=== PATIENT | female | born 1985 | race Caucasian/White ===

== ENCOUNTER 2019-07-24 08:51 | Day surgery (SDC) | payer OTHER, SELFPAY ==
[2019-07-24] VITALS (15 sets, daily range): BP systolic 90–128; BP diastolic 47–75; PULSE 69–91; RESP 11–22; TEMP 36.1–36.9; O2SAT 96–100
--- NOTE | ~2019-07-24 | US_ITS ---
EXAMINATION: US OB <=14 wk fetus w TV DATE: 07/24/2019 10:15 INDICATION: Pelvic pain. Spotting. First trimester of . Beta-hCG is 12,520 mIU/mL. TECHNIQUE: Real-time transabdominal and transvaginal pelvic ultrasound was performed. COMPARISON: None. FINDINGS: TRANSABDOMINAL ULTRASOUND: The uterus measures 8.9 x 5.7 x 6.2 cm. TRANSVAGINAL ULTRASOUND: There is no visible intrauterine gestational sac. The endometrial complex me asures 2.1 cm in thickness. The right ovary measures 2.5 x 2.2 x 2.6 cm. The left ovary measures 2.7 x 2.0 x 1.8 cm. In the left adnexa, there is a 4.0 x 2.7 x 4.0 cm mass of heterogeneous echogenicity . There is trace free fluid in the pelvis. IMPRESSION: 1. 4.0 cm left adnexal mass. Given the lack of a visible intrauterine gestational sac despite a beta -hCG of 12,529 mIU/mL, this finding is suspicious for an ectopic . I called this result to Sharmin Scott on 07/24/19 at 10:34 AM. Reviewed, dictated and finalized at location A. IMPRESSION: 1. 4.0 cm left adnexal mass. Given the lack of a visible intrauterine gestatio nal sac despite a beta-hCG of 12,529 mIU/mL, this finding is suspicious for an ectopic . I called this result to Dr. Scott on 07/24/19 at 10:34 AM .
--- NOTE | 2019-07-24 09:05 | ED.PREGNANCY ---
HPI - General Chief complaint: CHARGE ENTRY Stated complaint: 7 weeks preg, cramping Time Seen by Provider: 07/24/19 09:01 History of Present Illness HPI Narrative: Pelvic cramping since this morning. moderate in severity. She is 7 weeks . No prior US. She has had spotting for a few weeks. No worse today. No fever, chills, nausea, vomiting, dysuria. Related Data Home Medications Medication Instructions Recorded Confirmed 21-iron fu-folic acid 1 tablet PO DAILY 05/06/19 07/24/19 [ Complete] Allergies Allergy/AdvReac Type Severity Reaction Status Date / Time [facility] Allergy CHILD- Verified 07/24/19 12:35 UNKNOWN REACTION Review of Systems Review of Systems: All systems reviewed & are unremarkable except as noted in HPI and below Constitutional: Constitutional: Denies fever(s) Cardiovascular: Cardiovascular: Denies chest pain Respiratory: Respiratory: Denies dyspnea Gastrointestinal: Gastrointestinal: Reports abdominal pain Genitourinary: Genitourinary: Denies dysuria [facility] Social History Social History (Updated 07/24/19 @ 16:20 by Nasir Scott MD) Smoking status: Never smoker Exam Const: General: healthy appearing, no acute distress and alert Orientation/consciousness: patient oriented x3 HENMT: Head: normal to inspection Chest: Chest palpation & inspection: no tenderness Resp: Effort & Inspection: normal respiratory effort Auscultation: clear to auscultation bilaterally, no rales, no rhonchi and no wheezes Cardio: Jugular venous distension: no JVD Rate: regular rate Rhythm: regular rhythm Heart sounds: no murmurs GI: Inspection: non-distended GI Palp: Yes Soft to palpation and No Tenderness to palpation present (GI) Other: Non-tender Skin: General skin exam: normal color Neuro: General: patient oriented x3 and moves all extremities Speech: normal speech Extrem: General: no edema Psych: Appearance: well kempt Affect: normal affect Course Vital Signs Vital signs: Vital Signs Temperature 36.6 C 07/24/19 08:58 Pulse Rate 70 07/24/19 08:58 Respiratory Rate 22 H 07/24/19 08:58 Blood Pressure 97/55 L 07/24/19 08:58 Pulse Oximetry 98 07/24/19 08:58 Temperature 36.9 C 07/24/19 14:55 Pulse Rate 75 07/24/19 15:50 Respiratory Rate 14 07/24/19 15:50 Blood Pressure 91/57 L 07/24/19 15:50 Pulse Oximetry 96 07/24/19 14:55 MDM - OB/Uterine Contractions MDM Narrative Medical decision making narrative: Ectopic, miscarriage, normal preganancy. US suspicious for ectopic. [facility] 12,00. Case discussed with Emily Hernandez. He will take her to the OR. Medical Records Attestation: I reviewed the patient's medical records. Lab Data Attestation: I reviewed the patient's lab results. Result diagrams: 07/24/19 09:22 07/24/19 10:46 Labs: Lab Results 07/24/19 07/24/19 07/24/19 Range/Units 09:22 09:22 09:22 WBC 10.5 H (4.5-10.0) K/mm3 RBC 4.62 (4.2-5.4) M/mm3 Hgb 14.3 (12.0-15.0) g/dL Hct 40.9 (37.0-47.0) % MCV 88.5 (80-100) fl MCH 31.0 (26-34) pg MCHC 35.0 (32-36) g/dl RDW 12.0 (11.5-14.5) % Plt Count 300 (150-375) k/mm3 MPV 8.8 (7.4-10.4) fl Immature Gran % (Auto) 0.7 H (0-0.5) % Neut % (Auto) 75.1 H (45.5-73.1) % Lymph % (Auto) 16.4 L (18.3-44.2) % [place] % (Auto) 5.1 (2.6-8.5) % Eos % (Auto) 2.0 (0-4.4) % Baso % (Auto) 0.7 (0.2-1.2) % Lymph # (Auto) 1.72 (0.9-3.2) K/mm3 [place] # (Auto) 0.5 (0.1-0.6) K/mm3 Eos # (Auto) 0.2 (0-0.3) K/mm3 Baso # (Auto) 0.1 (0.0-0.1) K/mm3 Abs Immat Gran (auto) 0.07 H (0.00-0.031) K/mm3 Absolute Neuts (auto) 7.9 H (1.3-6.7) K/mm3 Absolute Nucleated RBC 0.0 (0.0-0.012) K/mm3 Nucleated RBC % 0.0 (0.0-0.2) % PT 12.1 (11.1-14.7) Seconds INR 0.9 APTT 23.4 (22.3-36.8) SECONDS Sodium (137-145) mmol/L
[2019-07-24] MEDS: SODIUM CHLORIDE 0.9% IV 1,000 ML 999 ML IV CONT (09:26)
[2019-07-24 09:29] LABS: Basophils Absolute Auto 0.1 K/mm3 (0.0-0.1); Basophils Percent Auto 0.7 % (0.2-1.2); Eosinophils Absolute Auto 0.2 K/mm3 (0-0.3); Hematocrit 40.9 % (37.0-47.0); Hemoglobin 14.3 g/dL (12.0-15.0); Immature Granulocyte Absolute 0.07 K/mm3 (0.00-0.031); Immature Granulocyte Percent A 0.7 % (0-0.5); Lymphocytes Absolute Auto 1.72 K/mm3 (0.9-3.2); Lymphocytes Percent Auto 16.4 % (18.3-44.2); Mean Corpuscular Volume 88.5 fl (80-100); Mean Platelet Volume 8.8 fl (7.4-10.4); Monocytes Absolute Auto 0.5 K/mm3 (0.1-0.6); Monocytes Percent Auto 5.1 % (2.6-8.5); Neutrophils Absolute Auto 7.9 K/mm3 (1.3-6.7); Neutrophils Percent Auto 75.1 % (45.5-73.1); Platelet Count Result 300 k/mm3 (150-375); Red Blood Count 4.62 M/mm3 (4.2-5.4); White Blood Count 10.5 K/mm3 (4.5-10.0)
[2019-07-24 09:39] LABS: INR 0.9; Prothrombin Time 12.1 Seconds (11.1-14.7)
[2019-07-24 09:40] LABS: Partial Thromboplastin Time 23.4 SECONDS (22.3-36.8)
[2019-07-24 09:56] LABS: Add Urine Microscopic? YES; Amorphous Sediment Urine Moderate; Appearance Urine Cloudy (Clear); Bacteria Urine Trace /hpf; Bilirubin Urine Negative (Negative); Blood Urine Negative (Negative); Color Urine Yellow (Yellow); Glucose Urine UA Negative (Negative); Ketones Urine Negative (Negative); Leukocyte Esterase Ur Trace LEU/UL (Negative); Mucus Urine Few /lpf; Nitrate Urine Negative (Negative); Protein Urine 1+ mg/dL (Negative); Specific Grav Ur 1.019 (1.001-1.035); Squamous Epithelial Cell Urine Few /hpf (Few); Urobilinogen Urine Negative mg/dL (<2.0); WBC Urine 0-3 /hpf
[2019-07-24 11:11] LABS: Alanine Aminotransferase 22 U/L (4-35); Albumin Level 3.7 g/dL (3.5-5.1); Alkaline Phosphatase 75 U/L (38-126); Aspartate Amino Transferase 20 U/L (14-36); Bilirubin,Total 0.3 mg/dL (0.2-1.3); Blood Urea Nitrogen 17 mg/dL (7-17); Calcium 8.1 mg/dL (8.4-10.2); Carbon Dioxide 23 mmol/L (22-30); Chloride 107 mmol/L (98-107); Estimated CRCL calculation 103 ml/min; Estimated Glomerular Filt Rate > 60; Glucose 101 mg/dL (65-105); Potassium 4.6 mmol/L (3.4-5.0); Sodium 135 mmol/L (137-145)
--- NOTE | 2019-07-24 11:35 | PC.NURSE ---
Dr. Mosley here to examine patient
--- NOTE | 2019-07-24 11:41 | PM.IMHP ---
H&P: HPI History of Present Illness Chief complaint: 7 weeks preg, cramping Narrative: Anabel Anaya is a 34 year old female Presents to the emergency department with a right-sided ectopic . She had increasing hCGs and has been 7 weeks since her last menstrual period ultrasound shows a mass consistent with ectopic and no intrauterine . Risks and benefits were reviewed Review of Systems Review of Systems: All systems reviewed & are unremarkable except as noted in HPI and below Meds Home Medications and Allergies Home Medications Medication Instructions Recorded Confirmed Type multivitamin 1 tablet PO DAILY 05/06/19 05/06/19 History 21-iron fu-folic acid 1 tablet PO DAILY 05/06/19 05/06/19 History [ Complete] Allergies Allergy/AdvReac Type Severity Reaction Status Date / Time cefaclor [From [facility]] Allergy CHILD- Verified 05/06/19 14:48 UNKNOWN REACTION Vital Signs Vital Signs - 24 hr 07/24/19 08:58 07/24/19 10:06 07/24/19 10:07 Temperature 97.9 F Pulse Rate 70 74 80 Respiratory Rate 22 H Blood Pressure 97/55 L 107/65 103/66 Pulse Oximetry 98 07/24/19 10:09 07/24/19 10:36 Temperature Pulse Rate 91 72 Respiratory Rate 16 Blood Pressure 112/62 112/62 Pulse Oximetry 99 Exam Const: General: no acute distress Eyes: General: appearance normal, both eyes and all related structures Neck: Neck: supple and no JVD Thyroid: thyroid normal Resp: Effort & Inspection: normal respiratory effort Auscultation: clear to auscultation bilaterally Cardio: Rate: regular rate Rhythm: regular rhythm GI: Inspection: non-distended GI Palp: Yes Soft to palpation, No Tenderness to palpation present (GI) and No Guarding due to palpation present (GI) Auscultation: normal bowel sounds : General: Yes other (Generalized pelvic pain.) External Female Exam: normal appearance of the urethra Speculum Exam - Vagina: normal appearance of the vagina and vaginal bleeding Bimanual exam- vagina & uterus: Uterine tenderness Bimanual Exam- Adnexa, other: cul-de-sac fullness Skin: General skin exam: no rashes or lesions noted Extrem: General: normal to inspection and no edema Psych: Mental Status: mental status grossly normal Affect: normal affect H&P: Results Labs Labs: Short CBC 07/24/19 Range/Units 09:22 WBC 10.5 H (4.5-10.0) K/mm3 Hgb 14.3 (12.0-15.0) g/dL Hct 40.9 (37.0-47.0) % Plt Count 300 (150-375) k/mm3 BMP 07/24/19 10:46 Sodium 135 L Potassium 4.6 Chloride 107 Carbon Dioxide 23 BUN 17 Creatinine 0.80 Glucose 101 Calcium 8.1 L Liver Function 07/24/19 Range/Units 10:46 Total Bilirubin 0.3 (0.2-1.3) mg/dL AST 20 (14-36) U/L ALT 22 (4-35) U/L Alkaline Phosphatase 75 (38-126) U/L Albumin 3.7 (3.5-5.1) g/dL Urine 07/24/19 Range/Units 09:36 Urine Color Yellow (Yellow) Urine Appearance Cloudy H (Clear) Urine pH 8.0 (5.0-9.0) Ur Specific [place] 1.019 (1.001-1.035) Urine Protein 1+ H (Negative) mg/dL Urine Glucose (UA) Negative (Negative) mg/dL Assessment and Plan Additional Plan Impression: Ectopic Plan: Laparoscopic salpingectomy versus salpingectomy versus salpingo-oophorectomy.
[2019-07-24] MEDS: LACTATED RINGERS 1,000 ML 30 ML IV CONT (12:25)
--- NOTE | 2019-07-24 12:42 | WPDANESEPPF ---
Anes - Initial Pre Proc Eval Procedure: Operation Date: 07/24/19 14:00 Proposed Procedures p DIAGNOSTIC LAPAROSCOPY, LEFT SALPINGOTOMY, POSSIBLE LEFT SALPINGECTOMY, POSSIBLE LEFT SALPINGO-OOPHORECTOMY - Arturo Melissa MD Date/Time: 07/24/19 12:42 Surgeon: Arturo Melissa MD Pre Op Diagnosis: 7 weeks preg, cramping Patient Data Age: 34 Gender: F Height: 5 ft 6 in Weight: 99.79 kg Last Vital Signs Temp 36.6 C 07/24/19 08:58 Pulse 71 07/24/19 11:43 Resp 22 H 07/24/19 11:43 BP 92/75 L 07/24/19 11:43 Pulse Ox 99 07/24/19 11:43 Allergies Allergy/AdvReac Type Severity Reaction Status Date / Time cefaclor [From [facility]] Allergy CHILD- Verified 07/24/19 12:35 UNKNOWN REACTION Home Medications Medication Instructions Recorded Confirmed Type 21-iron fu-folic acid 1 tablet PO DAILY 05/06/19 07/24/19 History [ Complete] hydrocodone-acetaminophen [[place]] 1 tablet PO Q4H PRN #30 tablet 07/24/19 Rx Laboratory Tests 07/24/19 07/24/19 07/24/19 09:22 09:22 09:22 WBC 10.5 K/mm3 H K/mm3 (4.5-10.0) RBC 4.62 M/mm3 M/mm3 (4.2-5.4) Hgb 14.3 g/dL g/dL (12.0-15.0) Hct 40.9 % % (37.0-47.0) MCV 88.5 fl fl (80-100) MCH 31.0 pg pg (26-34) MCHC 35.0 g/dl g/dl (32-36) RDW 12.0 % % (11.5-14.5) Plt Count 300 k/mm3 k/mm3 (150-375) MPV 8.8 fl fl (7.4-10.4) Immature Gran % (Auto) 0.7 % H % (0-0.5) Neut % (Auto) 75.1 % H % (45.5-73.1) Lymph % (Auto) 16.4 % L % (18.3-44.2) [place] % (Auto) 5.1 % % (2.6-8.5) Eos % (Auto) 2.0 % % (0-4.4) Baso % (Auto) 0.7 % % (0.2-1.2) Lymph # (Auto) 1.72 K/mm3 K/mm3 (0.9-3.2) [place] # (Auto) 0.5 K/mm3 K/mm3 (0.1-0.6) Eos # (Auto) 0.2 K/mm3 K/mm3 (0-0.3) Baso # (Auto) 0.1 K/mm3 K/mm3 (0.0-0.1) Abs Immat Gran (auto) 0.07 K/mm3 H K/mm3 (0.00-0.031) Absolute Neuts (auto) 7.9 K/mm3 H K/mm3 (1.3-6.7) Absolute Nucleated RBC 0.0 K/mm3 K/mm3 (0.0-0.012) Nucleated RBC % 0.0 % % (0.0-0.2) PT 12.1 Seconds Seconds (11.1-14.7) INR 0.9 APTT 23.4 SECONDS SECONDS (22.3-36.8) Sodium Potassium Chloride Carbon Dioxide BUN Creatinine Estim Creat Clear Calc Estimated GFR Glucose Calcium Total Bilirubin AST ALT Alkaline Phosphatase Total Protein Albumin Beta HCG, Quant Cancelled Urine Color Urine Appearance Urine pH Ur Specific [place] Urine Protein Urine Glucose (UA) Urine Ketones Ur Blood (Man) Urine Nitrate Urine Bilirubin Urine Urobilinogen Leukocyte Esterase Rfl Urine RBC Urine WBC Ur Squamous Epith Cells Amorphous Sediment Urine Bacteria Urine Mucus Blood Type Antibody Screen 07/24/19 07/24/19 07/24/19 09:22 09:22 09:36 WBC RBC Hgb Hct MCV MCH MCHC RDW Plt Count MPV Immature Gran % (Auto) Neut % (Auto) Lymph % (Auto) [place] % (Auto) Eos % (Auto) Baso % (Auto) Lymph # (Auto) [place] # (Auto) Eos # (Auto) Baso # (Auto) Abs Immat Gran (auto) Absolute Neuts (auto) Absolute Nucleated RBC Nucleated RBC % P
[2019-07-24] MEDS: SCOPOLAMINE 1.5 MG PATCH TRANSDERM (12:50)
--- NOTE | 2019-07-24 13:49 | P.OP_ITS ---
Procedure Note - Detailed Date of procedure: 07/24/19 Pre-op diagnosis: 7 weeks preg, cramping Surgeon: Arturo Melissa MD Postop diagnosis: Left tubal ectopic Procedure: Laparoscopic left partial salpingectomy Anesthesia: General endotracheal EBL: 25cc Complications: None Findings: A ruptured mid tubal left ectopic . Normal-appearing ovary and tube on the right normal-appearing uterus. [id number] of clotted blood in the abdomen. Description of procedure: The patient was prepped draped in the normal sterile fashion placed in the dorsal lithotomy position. Under excellent general endotracheal anesthesia weighted speculum was placed in posterior fornix of vagina. Anterior lip of the cervix grasped with a single-tooth tenaculum. The Way's cannula was inserted the cervix and attached to the single-tooth to be used later for uterine manipulation. The bladder was emptied of clear urine. The weighted speculum was removed. The gloves were changed. An infraumbilical incision was made and the Veress needle passed in the abdomen. The abdomen was filled with CO2 gas [id number]. The 5mm trocar was advanced directly into the abdomen direct visualization assuring no injury. The patient placed in 10 Trendelenburg and a suprapubic incision made the 5mm trocar adv anced under direct visualization into the peritoneal cavity assuring no injury. A left lower quadrant incision made and a 10mm trocar advanced into the abdomen under direct visualization assuring no injury. The clots and debris were removed. A midportion ectopic was seen in the left tube was passed ruptured and bleeding and for this reason decision was made to PARP partial salpingectomy. The ovary appeared within normal limits the opposite adnexa was normal. Using the LigaSure this midportion was removed without difficulty. Was placed in an Endo-Catch and removed through the left lower quadrant incision. Irrigation was undertaken until clear the pedicle appeared dry. The instruments were removed after removing gas from the abdomen. The incisions were closed with 4 O Monocryl and glue. All sponge, needle, instrument counts were correct. There were no immediate complications
--- NOTE | 2019-07-24 14:35 | SUR.PREOP ---
1430- called and updated
== END 2019-07-24 16:00 | disposition home or self-care (01) ==
LOC: ANHED 10:33 → ANHSURGERY 11:52
PROVIDERS: Emergency Provider Emergency Medicine; Visit Provider Obstetrics & Gynecology
PROC: (CPT 49320; principal; 2019-07-24 14:00)
DX: O00.102 Left tubal pregnancy without intrauterine pregnancy (principal)
CPT/HCPCS: 59151; 36415; 76801; 76817; 80053; 81001; 84702; 85025; 85610; 85730; 86850; 86900; 86901; 88302; 88305; 96360; 99285; A9270; J0330; J1100; J2250; J2405; J2704; J3010; J7030; J7120